=== PATIENT | female | born 1970 | race Caucasian/White ===

== ENCOUNTER 2017-10-23 17:30 | Emergency (ER) | payer OTHER ==
[~2017-10-23] VITALS: Ht 170.2 cm; Wt 92.5 kg
[2017-10-23] MEDS ORDERED: ONDANSETRON HCL INJ 2 MG/ML VIAL IV STA (17:44)
[2017-10-23] MEDS ORDERED: KETOROLAC TROMETHAMINE 30 MG/ML VIAL IV STA (17:44)
[2017-10-23] MEDS ORDERED: SODIUM CHLORIDE 0.9% 1000ML 1,000 ML IV SCH (17:45)
[2017-10-23] MEDS ORDERED: PROMETHAZINE 25MG/ NS 50ML (IV) IV ONE (19:15)
[2017-10-23 19:44] VITALS: BP 118/72
[2017-10-23] MEDS ORDERED: MORPHINE SULFATE 5 MG/ML VIAL IV ONE (19:45)
== END 2017-10-23 19:44 | disposition home or self-care (01) ==
LOC: FSED 17:30
DX: R10.32 Left lower quadrant pain (principal); N83.9 Noninflammatory disorder of ovary, fallopian tube and broad ligament, unspecified
CPT/HCPCS: 74177; 80053; 81003; 85025; 93005; 96375; 99284; J1885; J2405; J7030